=== PATIENT | male | born 1995 | race Caucasian/White ===

== ENCOUNTER 2021-04-30 19:12 | Emergency (ER) | payer SELFPAY ==
[~2021-04-30] VITALS: Ht 190.5 cm; Wt 78.1 kg
[2021-04-30 19:14] VITALS: BP 145/85
[2021-04-30] MEDS ORDERED: NS IV 1000 ML 1,000 ML IV STA (19:20)
--- NOTE | 2021-04-30 19:20 | ED General ---
General Chief Complaint: Bite-Animal/Human/Insect Stated Complaint: MULTIPLE BEE STINGS History of Present Illness Date Seen by Provider: Apr 30, 2021 Time Seen by Provider: 19:18 Initial Comments 25-year-old male presents with some back pain, flank pain. Patient reports that this morning he was outside and got stung by a bee multiple times. They worked out heat all day. The instance evening he started on a drink of beer with Vázquez I then had a vomit. Patient is just concerned because as he read on the Internet he could have some acute kidney injury. Patient denies any urinary symptoms. He does not have any rash or other systemic complaints. Allergies and Home Medications Allergies Coded Allergies: No Known Drug Allergies (Unverified , 04/30/21) Patient Home Medication List Home Medication List Reviewed: Yes Review of Systems Review of Systems Constitutional: see HPI EENTM: no symptoms reported Respiratory: no symptoms reported Cardiovascular: no symptoms reported Gastrointestinal: see HPI Genitourinary: see HPI Musculoskeletal: see HPI Skin: no symptoms reported Psychiatric/Neurological: No Symptoms Reported Hematologic/Lymphatic: No Symptoms Reported Physical Exam Vital Signs Vital Signs - First Documented 04/30/21 19:14 Temp 36.6 Pulse 100 Resp 16 B/P (MAP) 145/85 (105) Pulse Ox 100 O2 Delivery Room Air Capillary Refill : Height, Weight, BMI Height: '" Weight: lbs. oz. 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 Norm as Tested Progress/Results/Core Measures Suspected Sepsis SIRS Temperature: Pulse: Respiratory Rate: Laboratory Tests 04/30/21 19:21: White Blood Count 12.0H Blood Pressure / Mean: Laboratory Tests 04/30/21 19:21: Creatinine 0.87, Platelet Count 369 Results/Orders Lab Results Laboratory Tests Test 04/30/21 19:21 04/30/21 19:45 Range/Units White Blood Count 12.0 H 4.3-11.0 10^3/uL Red Blood Count 5.72 4.35-5.85 10^6/uL Hemoglobin 17.0 13.3-17.7 G/DL Hematocrit 47 40-54 % Mean Corpuscular Volume 83 80-99 FL Mean Corpuscular Hemoglobin 30 25-34 PG Mean Corpuscular Hemoglobin Concent 36 32-36 G/DL Red Cell Distribution Width 12.7 10.0-14.5 % Platelet Count 369 130-400 10^3/uL Mean Platelet Volume 8.4 7.4-10.4 FL Immature Granulocyte % (Auto) 0 % Neutrophils (%) (Auto) 77 H 42-75 % Lymphocytes (%) (Auto) 16 12-44 % Monocytes (%) (Auto) 6 0-12 % Eosinophils (%) (Auto) 1 0-10 % Basophils (%) (Auto) 0 0-10 % Neutrophils # (Auto) 9.2 H 1.8-7.8 X 10^3 Lymphocytes # (Auto) 2.0 1.0-4.0 X 10^3 Monocytes # (Auto) 0.7 0.0-1.0 X 10^3 Eosinophils # (Auto) 0.1 0.0-0.3 10^3/uL Basophils # (Auto) 0.0 0.0-0.1 10^3/uL Immature Granulocyte # (Auto) 0.0 0.0-0.1 10^3/uL Sodium Level 137 135-145 MMOL/L Potassium Level 3.8 3.6-5.0 MMOL/L Chloride Level 99 98-107 MMOL/L Carbon Dioxide Level 23 21-32 MMOL/L Anion Gap 15 H 5-14 MMOL/L Blood Urea Nitrogen 15 7-18 MG/DL Creatinine 0.87 0.60-1.30 MG/DL Estimat Glomerular Filtration Rate 106 BUN/Creatinine Ratio 17 Glucose Level 112 H 70-105 MG/DL Calcium Level 10.5 H 8.5-10.1 MG/DL Urine Color YELLOW Urine Clarity CLEAR Urine pH 6.5 5-9 Urine Specific [place] 1.025 H 1.016-1.022 Urine Protein NEGATIVE NEGATIVE Urine Glucose (UA) NEGATIVE NEGATIVE Urine Ketones NEGATIVE NEGATIVE Urine Nitrite NEGATIVE NEGATIVE Urine Bilirubin NEGATIVE NEGATIVE Urine Urobilinogen 0.2 < = 1.0 MG/DL Urine Leukocyte Esterase NEGATIVE NEGATIVE Urine RBC (Auto) NEGATIVE NEGATIVE Urine RBC NONE /HPF Urine WBC NONE /HPF Urine Squamous Epithelial Cells NONE /HPF Urine Crystals NONE /LPF Urine Bacteria FEW H /HPF Urine Casts PRESENT /LPF Urine Hyaline Casts 0-2 H /LPF Urine Granular Casts 0-2 H /LPF Urine Mucus LARGE H /LPF Urine Culture Indicated NO My Orders Orders - JONO GAUTHIER DO Basic Metabolic Panel (04/30/21 19:20) Cbc With Automated Diff (04/30/21 19:20) Ua Culture If Indicated (04/30/21 19:20) Ondansetron Injection (Zofran Injectio (04/30/21 19:30) Ns Iv 1000 Ml (Sodium Chloride 0.9%) (04/30/21 19:20) Medications Given in ED Current Medications Medications Dose Ordered Sig/Brandy Route Start Time Stop Time Status Last Admin Dose Admin Ondansetron HCl 4 mg ONCE ONCE IVP 04/30/21 19:30 04/30/21 19:31 DC 04/30/21 19:26 4 MG Vital Signs/I&O 04/30/21 19:14 Temp 36.6 Pulse 100 Resp 16 B/P (MAP) 145/85 (105) Pulse Ox 100 O2 Delivery Room Air Capillary Refill : Departure Impression Primary Impression: Heat exhaustion, unspecified, initial encounter Additional Impression: Bee sting Disposition: 01 HOME, SELF-CARE Condition: Stable Departure-Patient Inst. Referrals: RILEY BECKER MD (PCP/Family) Primary Care Physician Patient Instructions: Heat Illness ED, Insect Bites and Stings (DC) Add. Discharge Instructions: Drink plenty of fluids such as Gatorade, water, body armor or similar drinks. Get plenty of rest and watch her heat exposure All discharge instructions reviewed with patient and/or family. Voiced understanding. JONO GAUTHIER DO Apr 30, 2021 19:20
[2021-04-30 19:26] LABS: HEMATOCRIT 47 % (40-54); MEAN CORPUSCULAR HEMOGLOBIN 30 PG (25-34); MEAN CORPUSCULAR HGB CONC 36 G/DL (32-36); MEAN CORPUSCULAR VOLUME 83 FL (80-99)
[2021-04-30 19:27] LABS: BASOPHILS % (AUTO) 0 % (0-10); EOSINOPHILS # (AUTO) 0.1 10^3/uL (0.0-0.3); EOSINOPHILS % (AUTO) 1 % (0-10); LYMPHOCYTES % (AUTO) 16 % (12-44); MEAN PLATELET VOLUME 8.4 FL (7.4-10.4); MONOCYTES # (AUTO) 0.7 X 10^3 (0.0-1.0); MONOCYTES % (AUTO) 6 % (0-12); NEUTROPHILS # (AUTO) 9.2 X 10^3 (1.8-7.8); NEUTROPHILS % (AUTO) 77 % (42-75); PLATELET COUNT 369 10^3/uL (130-400)
[2021-04-30] MEDS ORDERED: ONDANSETRON 4 MG/2 ML (SDV) Z0FRAN IVP ONE (19:30)
[2021-04-30 19:44] LABS: CALCIUM 10.5 MG/DL (8.5-10.1); CREATININE SERUM 0.87 MG/DL (0.60-1.30); POTASSIUM 3.8 MMOL/L (3.6-5.0)
[2021-04-30 20:02] LABS: BACTERIA,URINE FEW /HPF; BILIRUBIN,URINE NEGATIVE (NEGATIVE); CLARITY,URINE CLEAR; COLOR,URINE YELLOW; GLUCOSE, URINE (UA) NEGATIVE (NEGATIVE); KETONES,URINE NEGATIVE (NEGATIVE); LEUKOCYTE ESTERASE ,URINE NEGATIVE (NEGATIVE); NITRITE,URINE NEGATIVE (NEGATIVE); PH,URINE 6.5 (5-9); PROTEIN,URINE NEGATIVE (NEGATIVE)
[2021-04-30 20:03] LABS: GRANULAR CASTS,URINE 0-2 /LPF; HYALINE CASTS, URINE 0-2 /LPF
== END 2021-04-30 20:16 | disposition home or self-care (01) ==
LOC: EDUNIT# 19:12 → ER FS 19:14
DX: T67.5XXA Heat exhaustion, unspecified, initial encounter (principal); T63.441A Toxic effect of venom of bees, accidental (unintentional), initial encounter
CPT/HCPCS: 36415; 80048; 81000; 85025; 96374

== ENCOUNTER 2021-08-05 11:43 | Emergency (ER) | payer SELFPAY ==
[~2021-08-05] VITALS: Ht 187 cm; Wt 77.0 kg
--- OUTSIDE RECORDS SUMMARY | 2021-08-05 11:49 | XMS REPORT | Clinical Summary ---
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 If you d o not see the information that you expected, contact Release of Information in [facility] [employer] Information Management department at [phone] for further assistan ce in locating additional records.[facility] Allergies Not on File Medications Not on file Active Problems Not on file Social History Date Tobacco Use Types Packs/Day Years Used Never Assessed Sex Assigned at Date Recorded Not on file Last Filed Vital Signs Not on file Plan of Treatment Health Maintenance Due Date Last Done Comments HPV VACCINES (1 - Male 2005 2-dose series) HIV SCREENING 2009 DTAP/TDAP VACCINES (1 - 2012 Tdap) HEPATITIS C SCREENING 2012 PHYSICAL (COMPREHENSIVE) 2012 EXAM INFLUENZA VACCINE 05/09/2021 Results Not on filefrom Last 3 Months
[2021-08-05] MEDS ORDERED: KETOROLAC 60 MG/2 ML VIAL IM ONE (12:00)
--- NOTE | 2021-08-05 12:16 | Diagnostic Imaging Report ---
PROCEDURE: CT abdomen and pelvis without contrast. TECHNIQUE: Multiple contiguous axial images were obtained through the abdomen and pelvis without the use of intravenous contrast. Auto Exposure Controls were utilized during the CT exam to meet ALARA standards for radiation dose reduction. INDICATION: Right flank pain There are no prior studies available for comparison. There is no sign of nephrolithiasis or urolithiasis and the kidneys do not appear to be obstructed. The appendix was visualized and is not abnormally thickened. There is no distortion of the periappendiceal fat to suggest acute appendicitis either. There is no pelvic mass or free fluid collection identified. The urinary bladder and prostate gland are grossly unremarkable. The liver, spleen, pancreas, gallbladder, adrenals, aorta and inferior vena cava are unremarkable for an acute abnormality. The stomach is not well distended and difficult to assess. The lung bases are clear. The bone windows show no sign of a fracture or of a destructive lesion. There is slight anterior wedging of T11, T12 and L1. I suspect these findings are long-standing in nature. IMPRESSION: 1. There is no evidence for an acute abnormality of the abdomen or pelvis. In particular, there is no sign of nephrolithiasis or urolithiasis and the kidneys do not appear to be obstructed. Dictated by: Dictated on workstation # [id number]
[2021-08-05 12:32] LABS: BACTERIA,URINE NEGATIVE /HPF; BILIRUBIN,URINE NEGATIVE (NEGATIVE); CLARITY,URINE SLT CLOUDY; COLOR,URINE YELLOW; GLUCOSE, URINE (UA) NEGATIVE (NEGATIVE); KETONES,URINE NEGATIVE (NEGATIVE); LEUKOCYTE ESTERASE ,URINE NEGATIVE (NEGATIVE); NITRITE,URINE NEGATIVE (NEGATIVE); PROTEIN,URINE NEGATIVE (NEGATIVE); WBC,URINE 0-2 /HPF
--- NOTE | 2021-08-05 12:46 | ED Abdominal Pain ---
General Chief Complaint: Abdominal/GI Problems Stated Complaint: RT FLANK PAIN Nursing Triage Note: RT FLANK PAIN THAT STARTED LAST PM. HX OF KIDNEY STONES. Source of Information: Patient Exam Limitations: No Limitations History of Present Illness Date Seen by Provider: Aug 05, 2021 Time Seen by Provider: 11:40 Initial Comments Patient is a 25-year-old male with remote history of kidney stones who presents with right lower flank pain starting approximately 18 hours prior to ED arrival. Pain is intermittent worse with palpation and trunk movement. It is dull mo derate to severe nonradiating. It exists from the right flank to the right lower quadrant. Denies fever chills nausea vomiting or sweats. No constipation or diarrhea. No urinary frequency urgency burning or hematuria. No testicular pain, tenderness or swelling. No hernias or masses. No recent injuries. No medications or therapies taken prior to ED arrival. No prior abdominal surgeries. Timing/Duration: 12-24 Hours Severity/Quality: Moderate, Severe, Dull Radiation: Other Activities at Onset: Other Modifying Factors: Improves With Other Associated Symptoms: Other Allergies and Home Medications Allergies Coded Allergies: No Known Drug Allergies (Unverified , 04/30/21) Patient Home Medication List Home Medication List Reviewed: Yes Review of Systems Review of Systems Constitutional: see HPI EENTM: See HPI Respiratory: See HPI Cardiovascular: See HPI Gastrointestinal: See HPI Genitourinary: See HPI Musculoskeletal: see HPI Skin: see HPI Psychiatric/Neurological: See HPI Endocrine: See HPI Hematologic/Lymphatic: See HPI All Other Systems Reviewed Negative Unless Noted: Yes Past Ahltzur-Zkvjok-Tdtohg Hx Patient Social History Tobacco Use?: Yes Tobacco type used: Cigarettes Smoking Status: Current Everyday Smoker Use of E-Cig and/or Vaping dev: No Substance use?: No Alcohol Use?: Yes Alcohol type: Beer Alcohol Frequency: Once in a while Pt feels they are or have been: No Past Medical History Surgery/Hospitalization HX: KIDNEY STONE AT 10. Physical Exam Vital Signs Vital Signs - First Documented 08/05/21 11:53 Temp 36.4 Pulse 80 Resp 16 B/P (MAP) 112/97 (102) Pulse Ox 100 O2 Delivery Room Air Capillary Refill : Less Than 3 Seconds Height/Weight/BMI Height: '" Weight: lbs. oz. 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, no motor/sensory deficits, alert, oriented x 3 Progress/Results/Core Measures Results/Orders Lab Results Laboratory Tests Test 08/05/21 12:00 Range/Units Urine Color YELLOW Urine Clarity SLT CLOUDY Urine pH 7.0 5-9 Urine Specific [place] 1.020 1.016-1.022 Urine Protein NEGATIVE NEGATIVE Urine Glucose (UA) NEGATIVE NEGATIVE Urine Ketones NEGATIVE NEGATIVE Urine Nitrite NEGATIVE NEGATIVE Urine Bilirubin NEGATIVE NEGATIVE Urine Urobilinogen 0.2 < = 1.0 MG/DL Urine Leukocyte Esterase NEGATIVE NEGATIVE Urine RBC (Auto) NEGATIVE NEGATIVE Urine RBC NONE /HPF Urine WBC 0-2 /HPF Urine Squamous Epithelial Cells NONE /HPF Urine Crystals NONE /LPF Urine Bacteria NEGATIVE /HPF Urine Casts NONE /LPF Urine Mucus NEGATIVE /LPF Urine Culture Indicated NO My Orders Orders - TRIPP GRANGER DO Urinalysis (08/05/21 11:52) Ct Abdomen/Pelvis Wo (08/05/21 11:52) Ketorolac Injection (Toradol Injection) (08/05/21 12:00) Medications Given in ED Current Medications Medications Dose Ordered Sig/Brandy Route Start Time Stop Time Status Last Admin Dose Admin Ketorolac Tromethamine 60 mg ONCE ONCE IM 08/05/21 12:00 08/05/21 12:01 DC 08/05/21 12:21 60 MG Vital Signs/I&O 08/05/21 11:53 Temp 36.4 Pulse 80 Resp 16 B/P (MAP) 112/97 (102) Pulse Ox 100 O2 Delivery Room Air Blood Pressure Mean: 102 Departure Communication (Admissions) CT abdomen pelvis: Normal appendix, no evidence of kidney stone or acute abdominal disease identified. No evidence of kidney stone or active appendicitis. Possibility of early appendicitis is not excluded given that there is currently not another obvious source of lower flank/right lower quadrant pain. Patient declines blood work at this time. Patient does not like needles and states he prefers in any way possible to prevent progression of acute appendicitis. Will place on oral antibiotics and continue pain medication with instructions to recheck in the ED in 12 to 24 hours. Return sooner. Patient verbalizes understanding and agreement with discharge instructions prior to discharge. Impression Primary Impression: Right lower quadrant abdominal pain Additional Impression: Right flank pain Disposition: 01 HOME, SELF-CARE Condition: Stable Departure-Patient Inst. Decision time for Depature: 12:49 Referrals: RILEY BECKER MD (PCP/Family) Primary Care Physician Patient Instructions: Appendicitis in Adults, Flank Pain ED Add. Discharge Instructions: You were evaluated in the emergency department for right low back and right lower quadrant abdominal pain. A urine sample and CT study were performed and are nondiagnostic. The exact cause of your symptoms has not been determined but is most consistent with musculoskeletal strain versus early appendicitis. The antibiotics you were prescribed are meant to prevent the progression of an early appendicitis into full-blown appendicitis but may not be successful and requires careful monitoring. It is important that you monitor your symptoms carefully and return to the ED in 24-48 hours for reevaluation if continued to have pain. Restrict diet to clear liquids only for the next 24 hours., Return to the ED if sooner if symptoms worsen All discharge instructions reviewed with patient and/or family. Voiced understanding. Scripts Cyclobenzaprine HCl (Cyclobenzaprine HCl) 10 Mg Tablet 10 MG PO TID, #30 TAB Prov: TRIPP GRANGER DO 08/05/21 Hydrocodone/Acetaminophen (Hydrocodone-Acetamin 5-325 mg) 1 Each Tablet 1 TAB PO Q4H PRN for PAIN-MODERATE (5-7), #12 TAB Prov: TRIPP GRANGER DO 08/05/21 Metronidazole (Flagyl) 500 Mg Tablet 500 MG PO TID for 21 Days, TAB Prov: TRIPP GRANGER DO 08/05/21 Amoxicillin/Potassium Clav (Augmentin 875-125 Tablet) 1 Each Tablet 1 EACH PO BID, #10 TAB 0 Refills Prov: TRIPP GRANGER DO 08/05/21 TRIPP GRANGER DO Aug 05, 2021 12:46
[2021-08-05] MEDS ORDERED: CYCL10TA9 PO (12:56)
[2021-08-05] MEDS ORDERED: AMOX-358 PO (12:56)
[2021-08-05] MEDS ORDERED: METR500T PO (12:56)
[2021-08-05] MEDS ORDERED: ACHD5005 PO (12:56)
[2021-08-05 12:59] VITALS: BP 116/82
== END 2021-08-05 13:00 | disposition home or self-care (01) ==
LOC: EDUNIT# 11:43 → ER FS 11:46
DX: R10.31 Right lower quadrant pain (principal); F17.210 Nicotine dependence, cigarettes, uncomplicated
CPT/HCPCS: 74176; 81000